=== PATIENT | female | born 1980 ===

== ENCOUNTER 2018-06-26 09:33 | Outpatient (CLI) | payer OTHER | END 2018-06-26 09:41 | disposition home or self-care (01) | LOC: SONOGRAMA 09:33 | DX: E04.2 Nontoxic multinodular goiter (principal) ==

== ENCOUNTER 2018-07-08 10:38 | Outpatient (CLI) | payer OTHER | END 2018-07-08 10:43 | disposition home or self-care (01) | LOC: SONOGRAMA 10:38 | DX: E04.2 Nontoxic multinodular goiter (principal) ==

== ENCOUNTER 2019-07-01 13:20 | Outpatient (CLI) | payer OTHER | END 2019-07-01 13:26 | disposition home or self-care (01) | LOC: MAMO-SONO 13:20 | DX: Z12.31 Encounter for screening mammogram for malignant neoplasm of breast (principal); Z87.898 Personal history of other specified conditions; N60.11 Diffuse cystic mastopathy of right breast; N60.12 Diffuse cystic mastopathy of left breast; D34 Benign neoplasm of thyroid gland ==

== ENCOUNTER → 2020-01-21 | Outpatient (CLI) | payer OTHER | END | disposition home or self-care (01) | LOC: RAD 09:46 | DX: R91.8 Other nonspecific abnormal finding of lung field (principal) ==

== ENCOUNTER 2020-08-06 08:32 | Outpatient (CLI) | payer OTHER | END 2020-08-06 08:47 | disposition home or self-care (01) | LOC: RAD 08:32 | PROVIDERS: ATTEND Internal Medicine | DX: M15.0 Primary generalized (osteo)arthritis (principal) ==

== ENCOUNTER 2021-03-20 08:12 | Outpatient (CLI) | payer OTHER | END 2021-03-20 08:44 | disposition home or self-care (01) | LOC: MAMO-SONO 08:12 | PROVIDERS: ATTEND Internal Medicine | DX: N60.01 Solitary cyst of right breast (principal); N64.89 Other specified disorders of breast; E04.1 Nontoxic single thyroid nodule; D68.8 Other specified coagulation defects; M15.0 Primary generalized (osteo)arthritis ==

== ENCOUNTER 2021-07-19 15:14 | Outpatient (CLI) | payer OTHER | END 2021-07-19 15:21 | disposition home or self-care (01) | LOC: RAD 15:14 | PROVIDERS: ATTEND Ophthalmology | DX: R91.8 Other nonspecific abnormal finding of lung field (principal) ==

== ENCOUNTER 2021-07-27 08:10 | Outpatient (CLI) | payer OTHER | END 2021-07-27 08:12 | disposition home or self-care (01) | LOC: SONOGRAMA 08:10 | PROVIDERS: ATTEND Internal Medicine | DX: S36.118A Other injury of liver, initial encounter (principal); D68.8 Other specified coagulation defects; E80.6 Other disorders of bilirubin metabolism ==

== ENCOUNTER → 2022-03-10 | Outpatient (CLI) | payer OTHER | END | disposition home or self-care (01) | LOC: RAD 10:13 | PROVIDERS: ATTEND Ophthalmology | DX: R91.8 Other nonspecific abnormal finding of lung field (principal) ==

== ENCOUNTER 2023-01-07 08:45 | Outpatient (CLI) | payer OTHER | END 2023-01-07 08:50 | disposition home or self-care (01) | LOC: MAMO-SONO 08:45 | PROVIDERS: ATTEND Internal Medicine | DX: E04.1 Nontoxic single thyroid nodule (principal); E03.8 Other specified hypothyroidism; N60.09 Solitary cyst of unspecified breast; Z12.31 Encounter for screening mammogram for malignant neoplasm of breast; R16.0 Hepatomegaly, not elsewhere classified; R91.1 Solitary pulmonary nodule ==

== ENCOUNTER 2024-06-19 10:10 | Outpatient (CLI) | payer OTHER | END 2024-06-19 10:32 | disposition home or self-care (01) | LOC: TOM 10:10 | PROVIDERS: ATTEND Internal Medicine | DX: R16.0 Hepatomegaly, not elsewhere classified (principal); R91.1 Solitary pulmonary nodule; E03.8 Other specified hypothyroidism; E04.1 Nontoxic single thyroid nodule ==

== ENCOUNTER 2024-07-07 07:36 | Outpatient (CLI) | payer OTHER | END 2024-07-07 07:46 | disposition home or self-care (01) | LOC: SONOGRAMA 07:36 | PROVIDERS: ATTEND Internal Medicine | DX: K76.89 Other specified diseases of liver (principal); R74.8 Abnormal levels of other serum enzymes; N93.9 Abnormal uterine and vaginal bleeding, unspecified ==